=== PATIENT | male | born 1980 | race Two or more races ===

== ENCOUNTER 2020-07-23 23:11 | Emergency (ER) | payer MEDICAID ==
[~2020-07-23] VITALS: Ht 167.6 cm; Wt 81.6 kg
[2020-07-23 23:24] VITALS: BP 108/54
--- NOTE | 2020-07-23 23:24 | NUR ---
ED Nurse Note: Patient walked into the ED from home with c/o flu like s/sx onset 07/21/19. Pt stated having cough, colds, body ache and headache. Pt stated having coworkers with covid. pt took ibuprofen, aspirin,nyquil but with no relief. 115 hr, other vss, afebrile, a/ox4, ambulatory, nad noted.
[2020-07-23] MEDS ORDERED: cefTRIAXone 1 GM in NS 55 ML IVPB ONE (23:30)
--- NOTE | 2020-07-23 23:33 | Emergency Room Report ---
History of Present Illness General Chief Complaint: Flu Like Symptoms Source: Patient Present Illness HPI Patient is a 39-year-old male presents for increased sore throat fever and cough. patient denies prior medical history. Patient had onset of symptoms approximately 3 days ago. Reports having generalized body aches, and nonproductive cough. Reports having recent exposure to people with coronavirus infection. Denies any vomiting or diarrhea. Allergies: Coded Allergies: No Known Allergies (Unverified , 07/23/20) COVID-19 Screening Contact w/high risk pt: Yes Experienced COVID-19 symptoms?: Yes COVID-19 Testing performed [employer] TEST TECHNICIAN: No Patient History Past Medical History: see triage record Reviewed Nursing Documentation: PMH: Agreed; PSxH: Agreed Nursing Documentation-PMH Past Medical History: No Stated History Review of Systems All Other Systems: negative except mentioned in HPI Physical Exam Vital Signs Date Time Temp Pulse Resp B/P (MAP) Pulse Ox O2 Delivery O2 Flow Rate FiO2 07/23/20 23:15 98.6 116 22 108/54 (72) 95 Room Air Sp02 EP Interpretation: reviewed, normal General Appearance: normal inspection, well appearing, no apparent distress, alert, GCS 15 Head: atraumatic ENT: normal ENT inspection, hearing grossly normal, normal voice, tonsillar swelling, tonsillar exudate Neck: normal inspection, full range of motion, supple, no bony tend Respiratory: normal inspection, lungs clear, normal breath sounds, no respiratory distress, no retraction, no wheezing Cardiovascular #1: regular rate, rhythm, no edema Gastrointestinal: normal inspection, normal bowel sounds, non tender, soft, no guarding, no hernia Genitourinary: no CVA tenderness Musculoskeletal: normal inspection, back normal, normal range of motion Neurologic: alert, motor strength/tone normal, director equipment III-XII nml as tested, oriented x3, responsive, speech normal, normal inspection Psychiatric: normal inspection, judgement/insight normal, mood/affect normal Skin: no rash Medical Decision Making Diagnostic Impression: Primary Impression: Tonsillitis Additional Impression: Viral respiratory infection ER Course Patient presented for sore throat and cough. Differential diagnosis included but was not limited to coronavirus infection, meningitis, exudative tonsillitis, retropharyngeal abscess, epiglottitis, strep pharyngitis. Laboratory testing was ordered to patient's recent symptoms and tachycardia. Patient was given IV fluids as well as IV antibiotics.Patient does appear to have some tonsillitis and was given antibiotics. He was started on IV fluids. Patient was advised to remain off work and self quarantine. Patient was advised to have outpatient coronavirus testing performed as he does not meet our current hospital criteria for testing. The patient is advised to follow up with primary care doctor in 2-3 days. Patient is advised to return if any worsening condition or if any changes in status that are concerning. This report is dictated with [employer] flight nurse software which may occasionally lead to discrepancies related to use of this software. Labs Test 07/23/20 23:50 White Blood Count 18.9 K/UL (4.8-10.8) Red Blood Count 5.14 M/UL (4.70-6.10) Hemoglobin 15.8 G/DL (14.2-18.0) Hematocrit 45.4 % (42.0-52.0) Mean Corpuscular Volume 88 FL (80-99) Mean Corpuscular Hemoglobin 30.8 PG (27.0-31.0) Mean Corpuscular Hemoglobin Concent 34.8 G/DL (32.0-36.0) Red Cell Distribution Width 12.4 % (11.6-14.8) Platelet Count 263 K/UL (150-450) Mean Platelet Volume 6.9 FL (6.5-10.1) Neutrophils (%) (Auto) % (45.0-75.0) Lymphocytes (%) (Auto) % (20.0-45.0) Monocytes (%) (Auto) % (1.0-10.0) Eosinophils (%) (Auto) % (0.0-3.0) Basophils (%) (Auto) % (0.0-2.0) Differential Total Cells Counted 100 Neutrophils % (Manual) 84 % (45-75) Lymphocytes % (Manual) 10 % (20-45) Monocytes % (Manual) 6 % (1-10) Eosinophils % (Manual) 0 % (0-3) Basophils % (Manual) 0 % (0-2) Band Neutrophils 0 % (0-8) Platelet Estimate Adequate Platelet Morphology Normal Sodium Level 136 MMOL/L (136-145) Potassium Level 3.8 MMOL/L (3.5-5.1) Chloride Level 102 MMOL/L (98-107) Carbon Dioxide Level 24 MMOL/L (21-32) Anion Gap 10 mmol/L (5-15) Blood Urea Nitrogen 13 mg/dL (7-18) Creatinine 1.1 MG/DL (0.55-1.30) Estimat Glomerular Filtration Rate > 60 mL/min (>60) Glucose Level 150 MG/DL (74-106) Calcium Level 8.7 MG/DL (8.5-10.1) Total Bilirubin 0.5 MG/DL (0.2-1.0) Aspartate Amino Transf (AST/SGOT) 44 U/L (15-37) Alanine Aminotransferase (ALT/SGPT) 79 U/L (12-78) Alkaline Phosphatase 102 U/L (46-116) Troponin I 0.000 ng/mL (0.000-0.056) Total Protein 7.6 G/DL (6.4-8.2) Albumin 3.6 G/DL (3.4-5.0) Globulin 4.0 g/dL Albumin/Globulin Ratio 0.9 (1.0-2.7) Last Vital Signs Date Time Temp Pulse Resp B/P (MAP) Pulse Ox O2 Delivery O2 Flow Rate FiO2 07/23/20 23:24 116 22 Room Air 07/23/20 23:24 98.6 108/54 95 Status: improved Disposition: HOME, SELF-CARE Condition: Stable Scripts Ibuprofen* (MOTRIN*) 600 Mg Tablet 600 MG ORAL Q8H PRN for FOR PAIN, #30 TAB 0 Refills Prov: Jose Gonzalez MD 07/24/20 Cholecalciferol (Vitamin D3) (Vitamin D3*) 25 Mcg Capsule 25 MCG PO DAILY for Supplement, #30 CAP Prov: Jose Gonzalez MD 07/24/20 Amoxicillin/Potassium Clav 875-125* (AUGMENTIN 875-125 TABLET*) 1 Each Tablet 1 TAB ORAL TWICE A DAY, #14 TAB Prov: Jose Gonzalez MD 07/24/20 Referrals: NOT CHOSEN [facility]/,REFERRING (PCP) Jose Gonzalez MD Jul 23, 2020 23:33
[2020-07-24 00:04] LABS: HEMATOCRIT 45.4 % (42.0-52.0); HEMOGLOBIN 15.8 G/DL (14.2-18.0); MEAN CORPUSCULAR VOLUME 88 FL (80-99); PLATELET COUNT 263 K/UL (150-450); RED BLOOD COUNT 5.14 M/UL (4.70-6.10); RED CELL DISTRIBUTION WIDTH 12.4 % (11.6-14.8); WHITE BLOOD COUNT 18.9 K/UL (4.8-10.8)
[2020-07-24 00:16] LABS: ANION GAP 10 mmol/L (5-15); BLOOD UREA NITROGEN 13 mg/dL (7-18); CALCIUM 8.7 MG/DL (8.5-10.1); CARBON DIOXIDE 24 MMOL/L (21-32); CHLORIDE 102 MMOL/L (98-107); CREATININE 1.1 MG/DL (0.55-1.30); POTASSIUM 3.8 MMOL/L (3.5-5.1); SODIUM 136 MMOL/L (136-145)
[2020-07-24 00:21] LABS: ALANINE AMINOTRANSFERASE 79 U/L (12-78); ALBUMIN 3.6 G/DL (3.4-5.0); ALBUMIN/GLOBULIN RATIO 0.9 (1.0-2.7); ALKALINE PHOSPHATASE 102 U/L (46-116); ASPARTATE AMINO TRANSFERASE 44 U/L (15-37); BILIRUBIN,TOTAL 0.5 MG/DL (0.2-1.0)
[2020-07-24] MEDS ORDERED: AUGMENTIN 875-1 EAC1 ORAL (00:44)
[2020-07-24] MEDS ORDERED: IBUPROFEN600 M1 ORAL (00:44)
[2020-07-24] MEDS ORDERED: VITAMIN D325 MC1 PO (00:44)
[2020-07-24 01:01] VITALS: BP 108/54
--- NOTE | 2020-07-24 01:02 | NUR ---
ED Nurse Note: Pt cleared by health care Provider for discharge. DC instructions/prescription was given and explained to pt and verbalized understanding of teachings. All medical deviecs such as ID band and iv removed. Pt is AAO x4, ambulatory and left with all personal belongings.
--- NOTE | 2020-07-24 15:51 | Diagnostic Imaging Report ---
Indication: Shortness of breath Technique: One view of the chest Comparison: none Findings: Lungs and pleural spaces are clear. Heart size is normal. Impression: No acute process
== END 2020-07-24 01:02 | disposition home or self-care (01) ==
LOC: EMR 23:29
DX: J98.8 Other specified respiratory disorders (principal); J03.90 Acute tonsillitis, unspecified; R05 Cough; R50.9 Fever, unspecified; Z20.822 Contact with and (suspected) exposure to COVID-19
CPT/HCPCS: 36415; 71045; 80053; 84484; 85007; 85025; 96361; 96365; J0696; J7030; Z7502; 99284